=== PATIENT | male | born 1960 | race Caucasian/White ===

== ENCOUNTER 2017-07-28 13:54 | Inpatient (IN) ==
[2017-07-28 15:07] LABS: Basophils # 0.1 10*3/uL (0.0-0.2); Basophils % 0.7 % (0.0-0.8); Eosinophils # 0.1 10*3/uL (0.0-0.87); Eosinophils % 1.7 % (0.00-10.9); Hematocrit 40.7 VOL% (42.0-52.0); Hemoglobin 14.2 GM/DL (14.0-18.0); Immature Granulocytes % 0.4 %; Immature Granulocytes Absolute 0.03 #; Lymphocytes # 2.2 10*3/uL (1.4-4.0); Lymphocytes % 28.7 % (21.2-54.2); Mean Corpuscular HGB Conc 34.9 GM/DL (32-36); Mean Corpuscular Hemoglobin 32 PG (27-34); Mean Corpuscular Volume 91.3 FL (87-102); Mean Platelet Volume 10.4 FL (9.6-12.0); Monocytes # 0.5 10*3/uL (0.11-0.8); Monocytes % 6.3 % (1.7-12.7); Neutrophils # 4.8 10*3/uL (1.4-7.4); Neutrophils % 62.2 % (38.7-73.9); Platelet Count 222 T/CUMM (130-400); Red Blood Count 4.46 MC/CUMM (3.8-5.5); White Blood Count 7.7 T/CUMM (4-12)
[2017-07-28 15:13] LABS: INR 0.9; PT Patient Result 9.9 SECS; Partial Thromboplastin Time 26.4 SECS (0-40)
[2017-07-28 15:27] LABS: Alanine Aminotransferase 26 U/L (16-61); Albumin 3.7 G/DL (3.4-5.0); Alkaline Phosphatase 78 U/L (45-117); Aspartate Amino Transferase 17 U/L (0-37); Blood Urea Nitrogen 13 MG/DL (7-18); Calcium 8.8 MG/DL (8.5-10.1); Glucose 99 MG/DL (74-106); Magnesium 1.9 MG/DL (1.8-2.4); Osmolality,Calculated 278.4 MOS/KG (273-304); Potassium 4.3 MMOL/L (3.5-5.1); Sodium 140 MMOL/L (136-145); Total Protein 6.9 G/DL (6.4-8.3)
[2017-07-28 15:29] LABS: Troponin I Only 0.117 NG/ML (0.00-0.045)
[2017-07-28] MEDS ORDERED: NICOTINE 21 MG/24 HR PATCH TRANSDERM PRN (16:41)
[2017-07-28] MEDS ORDERED: ONDANSETRON 4 MG/2 ML VIAL IV PRN (16:41)
[2017-07-28] MEDS ORDERED: ACETAMINOPHEN 325 MG TABLET PO PRN (16:41)
[2017-07-28] MEDS ORDERED: ALUM/MAG/SIMETH/LIDO VISC 1:1 30 ML BOTTLE PO STA (16:46)
[2017-07-28] MEDS ORDERED: ALUM/MAG/SIMETH/LIDO VISC 1:1 30 ML BOTTLE PO ONE (16:54)
[2017-07-28] MEDS ORDERED: NITROGLYCERIN SL 0.4 MG TABLET SL PRN (17:12)
[2017-07-28] MEDS ORDERED: CARVEDILOL 3.125 MG TABLET PO SCH (21:00)
[2017-07-28] MEDS ORDERED: ATORVASTATIN 10 MG TABLET PO SCH (21:00)
[2017-07-28] MEDS: METOPROLOL TARTRATE 25 MG TABLET PO SCH (21:17)
[2017-07-28] MEDS: ENOXAPARIN 100 MG/ML SYRINGE SUBCUT SCH (21:18)
[2017-07-28 23:06] LABS: Apearance,Urine CLEAR (Clear); Bilirubin,Urine Negative (Negative); Blood, Urine Negative (Negative); Glucose,Urine (UA) Negative (Negative); Ketones,Urine Negative (Negative); Mucus,Urine Occasional /LPF (Occasional); Nitrite,Urine Negative (Negative); Protein,Urine Negative; RBC,Urine <1 /HPF (0-4); Urine Color Yellow (Yellow); Urine Specific Gravity 1.012 (1.001-1.035); WBC,Urine <1 /HPF (0-6)
[2017-07-29 03:24] LABS: Basophils # 0.1 10*3/uL (0.0-0.2); Basophils % 0.9 % (0.0-0.8); Eosinophils # 0.2 10*3/uL (0.0-0.87); Eosinophils % 2.7 % (0.00-10.9); Hematocrit 41.1 VOL% (42.0-52.0); Hemoglobin 13.3 GM/DL (14.0-18.0); Immature Granulocytes % 0.4 %; Immature Granulocytes Absolute 0.03 #; Lymphocytes # 2.6 10*3/uL (1.4-4.0); Lymphocytes % 38.7 % (21.2-54.2); Mean Corpuscular HGB Conc 32.4 GM/DL (32-36); Mean Corpuscular Hemoglobin 31 PG (27-34); Mean Corpuscular Volume 94.5 FL (87-102); Mean Platelet Volume 10.3 FL (9.6-12.0); Monocytes # 0.5 10*3/uL (0.11-0.8); Monocytes % 7.5 % (1.7-12.7); Neutrophils # 3.3 10*3/uL (1.4-7.4); Neutrophils % 49.8 % (38.7-73.9); Platelet Count 206 T/CUMM (130-400); Red Blood Count 4.35 MC/CUMM (3.8-5.5); Red Cell Distribution Width 14.2 % (9.3-17.3); White Blood Count 6.7 T/CUMM (4-12)
[2017-07-29 03:54] LABS: Calcium 8.7 MG/DL (8.5-10.1); Osmolality,Calculated 283.1 MOS/KG (273-304); Potassium 4.4 MMOL/L (3.5-5.1); Risk Ratio 4.67; VLDL CHOLESTEROL 26.4 MG/DL
[2017-07-29] MEDS ORDERED: MAGNESIUM SULF RIDER 2 GM in PREMIX 1 EACH IV PRN (08:19)
[2017-07-29] MEDS ORDERED: POTASSIUM CHLORIDE RIDER 10 MEQ in PREMIX 1 EACH IV PRN (08:19)
[2017-07-29] MEDS ORDERED: SODIUM CHLORIDE 0.45% 1,000 ML IV SCH (08:30)
[2017-07-29] MEDS ORDERED: ATORVASTATIN 40 MG TABLET PO SCH (08:37)
[2017-07-29] MEDS ORDERED: ASPIRIN 325 MG TABLET ONE (08:40)
[2017-07-29] MEDS ORDERED: ASPIRIN EC 81 MG TABLET PO SCH ×3 (09:00→14:38)
[2017-07-29] MEDS: METOPROLOL TARTRATE 25 MG TABLET PO SCH ×2 (09:18→20:46)
[2017-07-29] MEDS: ENOXAPARIN 100 MG/ML SYRINGE SUBCUT SCH ×3 (09:18→20:51)
[2017-07-29] MEDS: PANTOPRAZOLE 40 MG TABLET PO SCH (09:18)
[2017-07-29] MEDS ORDERED: POTASSIUM CHLORIDE INJ 20 MEQ in SODIUM CHLORIDE 0.45% 250 ML IV ONE (10:30)
[2017-07-29] MEDS: NITROGLYCERIN 2% OINT 1 INCH/GM PACK TOP SCH ×2 (12:09→17:22)
[2017-07-29] MEDS ORDERED: DIAZEPAM 5 MG TABLET PO ONE (13:00)
[2017-07-29] MEDS ORDERED: diphenhydrAMINE CAP 25 MG CAPSULE PO ONE (13:00)
[2017-07-29] MEDS ORDERED: HEPARIN/NACL 0.9% 2 UNITS/ML 2,000 ML IV ONE (13:10)
[2017-07-29] MEDS ORDERED: LIDOCAINE 2%/EPI 20 ML VIAL ONE (13:10)
[2017-07-29] MEDS ORDERED: MIDAZOLAM 2 MG/2 ML VIAL ONE (13:28)
[2017-07-29] MEDS ORDERED: fentaNYL 100 MCG/2 ML VIAL ONE (13:28)
[2017-07-29] MEDS ORDERED: ENOXAPARIN 30 MG/0.3 ML SYRINGE ONE (13:50)
[2017-07-29] MEDS ORDERED: TIROFIBAN 5,000 MCG/100 ML PREMIX IV SCH (13:51)
[2017-07-29] MEDS ORDERED: TIROFIBAN 5,000 MCG/100 ML PREMIX IV ONE (13:52)
[2017-07-29] MEDS ORDERED: TICAGRELOR 90 MG TABLET ONE (13:58)
[2017-07-29] MEDS ORDERED: NITROGLYCERIN SL 0.4 MG TABLET SL PRN (14:32)
[2017-07-29] MEDS ORDERED: HYDROmorphone 2 MG/1 ML VIAL IV PRN (14:32)
[2017-07-29] MEDS ORDERED: fentaNYL 100 MCG/2 ML VIAL IV PRN (14:32)
[2017-07-29] MEDS: ALBUTEROL/IPRATROPIUM 3 ML NEB RESP TX SCH ×3 (16:27→20:31)
[2017-07-30] MEDS: ALBUTEROL/IPRATROPIUM 3 ML NEB RESP TX SCH ×4 (00:24→11:04)
[2017-07-30] MEDS: NITROGLYCERIN 2% OINT 1 INCH/GM PACK TOP SCH ×2 (00:46→09:43)
[2017-07-30 06:11] LABS: Basophils # 0.1 10*3/uL (0.0-0.2); Basophils % 0.8 % (0.0-0.8); Eosinophils # 0.1 10*3/uL (0.0-0.87); Eosinophils % 1.5 % (0.00-10.9); Hematocrit 42.2 VOL% (42.0-52.0); Immature Granulocytes % 0.4 %; Immature Granulocytes Absolute 0.03 #; Lymphocytes % 23.9 % (21.2-54.2); Mean Corpuscular HGB Conc 33.2 GM/DL (32-36); Mean Corpuscular Hemoglobin 31 PG (27-34); Mean Corpuscular Volume 93.4 FL (87-102); Mean Platelet Volume 9.9 FL (9.6-12.0); Monocytes # 0.5 10*3/uL (0.11-0.8); Monocytes % 5.7 % (1.7-12.7); Neutrophils # 5.7 10*3/uL (1.4-7.4); Neutrophils % 67.7 % (38.7-73.9); Platelet Count 206 T/CUMM (130-400); Red Blood Count 4.52 MC/CUMM (3.8-5.5); Red Cell Distribution Width 14.1 % (9.3-17.3); White Blood Count 8.4 T/CUMM (4-12)
[2017-07-30 06:42] LABS: Magnesium 2.4 MG/DL (1.8-2.4); Osmolality,Calculated 283.3 MOS/KG (273-304); Potassium 4.2 MMOL/L (3.5-5.1)
[2017-07-30 06:43] LABS: Risk Ratio 4.95; VLDL CHOLESTEROL 29.8 MG/DL
[2017-07-30 06:47] LABS: Calcium 8.7 MG/DL (8.5-10.1); Osmolality,Calculated 281.4 MOS/KG (273-304); Potassium 4.2 MMOL/L (3.5-5.1)
[2017-07-30 06:57] LABS: Troponin I Only 0.103 NG/ML (0.00-0.045)
[2017-07-30 08:51] VITALS: BP 124/75
[2017-07-30] MEDS ORDERED: TICAGRELOR 90 MG TABLET PO SCH (09:00)
[2017-07-30] MEDS ORDERED: LOSARTAN 25 MG TABLET PO SCH (09:00)
[2017-07-30] MEDS ORDERED: LISINOPRIL 2.5 MG TABLET PO SCH (09:00)
[2017-07-30] MEDS: METOPROLOL TARTRATE 25 MG TABLET PO SCH (09:43)
[2017-07-30] MEDS: PANTOPRAZOLE 40 MG TABLET PO SCH (09:43)
== END 2017-07-30 12:01 | disposition home or self-care (01) | DRG 175 ==
LOC: N.ED 13:54 → N.EDINP 13:54 → N.TELEN 18:13
PROVIDERS: ADMIT Internal Medicine Infectious Disease; ATTEND Internal Medicine Infectious Disease
PROC: CLCCHCL (ICD-10-PCS; 2017-07-29 14:15)

== ENCOUNTER 2020-02-26 13:18 | Inpatient (IN) ==
[2020-02-26] MEDS ORDERED: ASPIRIN 325 MG TABLET PO STA ×2 (13:46→14:06)
[2020-02-26] MEDS ORDERED: ONDANSETRON 4 MG/2 ML VIAL ONE (13:50)
[2020-02-26] MEDS ORDERED: MORPHINE 4 MG/1 ML VIAL ONE (14:03)
[2020-02-26] MEDS ORDERED: NITROGLYCERIN 2% OINT 1 INCH/GM PACK TOP STA (14:06)
[2020-02-26] MEDS ORDERED: MORPHINE 4 MG/1 ML VIAL IV STA (14:06)
[2020-02-26] MEDS ORDERED: ONDANSETRON 4 MG/2 ML VIAL IV STA (14:14)
[2020-02-26 14:15] LABS: Basophils # 0.1 10*3/uL (0.0-0.2); Basophils % 0.8 % (0.0-0.8); Eosinophils % 0.1 % (0.00-10.9); Hematocrit 41.2 VOL% (42.0-52.0); Hemoglobin 13.4 GM/DL (14.0-18.0); Immature Granulocytes % 0.3 %; Immature Granulocytes Absolute 0.02 #; Lymphocytes # 1.8 10*3/uL (1.4-4.0); Lymphocytes % 24.2 % (21.2-54.2); Mean Corpuscular HGB Conc 32.5 GM/DL (32-36); Mean Corpuscular Volume 93.6 FL (87-102); Mean Platelet Volume 10.3 FL (9.6-12.0); Monocytes % 5.3 % (1.7-12.7); Neutrophils % 69.3 % (38.7-73.9); Platelet Count 163 T/CUMM (130-400); Red Cell Distribution Width 13.4 % (9.3-17.3); White Blood Count 7.3 T/CUMM (4-12)
[2020-02-26 14:23] LABS: PT Patient Result 10.3 SECS (9.8-11.9)
[2020-02-26 14:29] LABS: Albumin 3.7 G/DL (3.4-5.0); Bilirubin,Total 0.4 MG/DL (0.2-1.0); Calcium 9.1 MG/DL (8.5-10.1); Osmolality,Calculated 279.8 MOS/KG (273-304); Total Protein 6.7 G/DL (6.4-8.3)
[2020-02-26] MEDS ORDERED: LACTULOSE 20 GM/30 ML UDCUP PO PRN (14:52)
[2020-02-26] MEDS ORDERED: guaiFENesin/DM ER 600-30 MG TABLET PO PRN (14:52)
[2020-02-26] MEDS ORDERED: DOCUSATE SODIUM 100 MG CAPSULE PO PRN (14:52)
[2020-02-26] MEDS ORDERED: BISACODYL 5 MG TABLET PO PRN (14:52)
[2020-02-26] MEDS ORDERED: hydrALAZINE 20 MG/1 ML VIAL IV PRN (14:52)
[2020-02-26] MEDS ORDERED: ZALEPLON 5 MG CAPSULE PO PRN (14:52)
[2020-02-26] MEDS ORDERED: traZODone 50 MG TABLET PO PRN (14:52)
[2020-02-26] MEDS ORDERED: CALCIUM CARBONATE CHEW 500 MG TABLET PO PRN (14:52)
[2020-02-26] MEDS ORDERED: NICOTINE 21 MG/24 HR PATCH TRANSDERM PRN (14:52)
[2020-02-26] MEDS ORDERED: DEXTROSE 50% 25 GM/50 ML VIAL IV PRN ×2 (14:52→16:22)
[2020-02-26] MEDS ORDERED: ALUMINUM/MAGNES/SIMETH MAX STR 30 ML UDCUP PO PRN (14:52)
[2020-02-26] MEDS ORDERED: SIMETHICONE CHEW 125 MG TABLET PO PRN (14:52)
[2020-02-26] MEDS ORDERED: diphenhydrAMINE CAP 25 MG CAPSULE PO PRN (14:52)
[2020-02-26] MEDS ORDERED: ALBUTEROL 2.5 MG/3 ML NEB RESP TX PRN (16:21)
[2020-02-26] MEDS ORDERED: ONDANSETRON 4 MG TABLET PO PRN (16:21)
[2020-02-26] MEDS ORDERED: NITROGLYCERIN SL 0.4 MG TABLET SL PRN (16:21)
[2020-02-26] MEDS ORDERED: ALBUTEROL/IPRATROPIUM 3 ML NEB RESP TX PRN (16:21)
[2020-02-26] MEDS ORDERED: GLUCAGON 1 MG VIAL IM PRN (16:22)
[2020-02-26] MEDS: MORPHINE 4 MG/1 ML VIAL IV PRN ×2 (17:00→21:40)
[2020-02-26] MEDS ORDERED: METOPROLOL TARTRATE 5 MG/5 ML VIAL IV ONE (17:20)
[2020-02-26] MEDS: INSULIN REGULAR 100 UNIT/ML SUBCUT SCH ×2 (18:37→21:55)
[2020-02-26] MEDS: SODIUM CHLORIDE 23.4% CONC INJ 38.5 MEQ in STERILE WATER INJ 1,000 ML IV SCH (21:10)
[2020-02-26] MEDS: METOPROLOL TARTRATE 25 MG TABLET PO SCH (21:45)
[2020-02-26] MEDS: ATORVASTATIN 80 MG TABLET PO SCH (21:45)
[2020-02-26] MEDS: buPROPion SR 150 MG TABLET PO SCH (21:45)
[2020-02-26] MEDS: FAMOTIDINE 20 MG TABLET PO SCH (21:45)
[2020-02-26] MEDS: GABAPENTIN 400 MG CAPSULE PO SCH (21:45)
[2020-02-26] MEDS: risperiDONE 1 MG TABLET PO SCH (21:46)
[2020-02-26] MEDS: NON-FORMULARY MEDICATION (Glycopyrrolate-Formoterol [Bevespi Aerosphere] 2 PUFF) INH SCH (21:47)
[2020-02-26] MEDS: ENOXAPARIN 40 MG/0.4 ML SYRINGE SUBCUT SCH (21:48)
[2020-02-27 06:35] LABS: Basophils % 0.7 % (0.0-0.8); Eosinophils # 0.2 10*3/uL (0.0-0.87); Eosinophils % 2.9 % (0.00-10.9); Hematocrit 41.7 VOL% (42.0-52.0); Hemoglobin 13.6 GM/DL (14.0-18.0); Immature Granulocytes % 0.2 %; Immature Granulocytes Absolute 0.01 #; Lymphocytes # 1.7 10*3/uL (1.4-4.0); Lymphocytes % 27.8 % (21.2-54.2); Mean Corpuscular HGB Conc 32.6 GM/DL (32-36); Mean Corpuscular Volume 93.3 FL (87-102); Mean Platelet Volume 10.6 FL (9.6-12.0); Monocytes % 3.8 % (1.7-12.7); Neutrophils % 64.6 % (38.7-73.9); Platelet Count 144 T/CUMM (130-400); Red Blood Count 4.47 MC/CUMM (3.8-5.5); Red Cell Distribution Width 13.4 % (9.3-17.3); White Blood Count 6.1 T/CUMM (4-12)
[2020-02-27 07:11] LABS: Albumin 3.5 G/DL (3.4-5.0); Bilirubin,Total 1.3 MG/DL (0.2-1.0); Calcium 9.4 MG/DL (8.5-10.1); Thyroid Stimulating Hormone 0.443 uIU/ml (0.358-3.74); Total Protein 6.9 G/DL (6.4-8.3); VLDL CHOLESTEROL 45.2 MG/DL
[2020-02-27] MEDS: INSULIN REGULAR 100 UNIT/ML SUBCUT SCH ×4 (08:23→21:50)
[2020-02-27 10:14] LABS: Apearance,Urine CLEAR (Clear); Bilirubin,Urine Negative (Negative); Blood, Urine Negative (Negative); Glucose,Urine (UA) >=500 mg/dL (Negative); Ketones,Urine 20 mg/dL (Negative); Mucus,Urine Occasional /LPF (Occasional); Nitrite,Urine Negative (Negative); Protein,Urine Negative; RBC,Urine 1 /HPF (0-4); Urine Color Yellow (Yellow); Urine Specific Gravity 1.021 (1.001-1.035); Urine Urobilinogen < 2.0 EU/DL (0.2-1.0)
[2020-02-27 10:20] LABS: Barbiturates Screen,Urine Negative (Negative); Benzodiazepines Screen,Urine Positive (Negative); Cannabinoid Screen,Urine Negative (Negative); Opiate Screen,Urine Positive (Negative); Phencyclidine Screen,Urine Negative (Negative)
[2020-02-27] MEDS: GABAPENTIN 400 MG CAPSULE PO SCH ×3 (11:47→21:35)
[2020-02-27] MEDS: ASPIRIN EC 81 MG TABLET PO SCH (11:53)
[2020-02-27] MEDS: DULoxetine 30 MG CAPSULE PO SCH (11:54)
[2020-02-27] MEDS: EZETIMIBE 10 MG TABLET PO SCH (11:54)
[2020-02-27] MEDS: CLOPIDOGREL 75 MG TABLET PO SCH (11:54)
[2020-02-27] MEDS: METOPROLOL TARTRATE 25 MG TABLET PO SCH ×2 (11:54→21:35)
[2020-02-27] MEDS: buPROPion SR 150 MG TABLET PO SCH ×2 (11:54→21:36)
[2020-02-27] MEDS: FUROSEMIDE 20 MG TABLET PO SCH (11:54)
[2020-02-27] MEDS: PANTOPRAZOLE 40 MG TABLET PO SCH (11:54)
[2020-02-27] MEDS: risperiDONE 1 MG TABLET PO SCH ×2 (11:54→21:36)
[2020-02-27] MEDS: NON-FORMULARY MEDICATION (Glycopyrrolate-Formoterol [Bevespi Aerosphere] 2 PUFF) INH SCH ×2 (11:54→21:35)
[2020-02-27] MEDS: LOSARTAN 25 MG TABLET PO SCH (11:54)
[2020-02-27] MEDS: SODIUM CHLORIDE 23.4% CONC INJ 38.5 MEQ in STERILE WATER INJ 1,000 ML IV SCH (18:18)
[2020-02-27] MEDS: ATORVASTATIN 80 MG TABLET PO SCH (21:35)
[2020-02-27] MEDS: ENOXAPARIN 40 MG/0.4 ML SYRINGE SUBCUT SCH (21:36)
[2020-02-27] MEDS: FAMOTIDINE 20 MG TABLET PO SCH (21:36)
[2020-02-28 06:39] LABS: Basophils % 0.4 % (0.0-0.8); Eosinophils % 0.3 % (0.00-10.9); Hematocrit 42.9 VOL% (42.0-52.0); Hemoglobin 14.1 GM/DL (14.0-18.0); Immature Granulocytes % 0.3 %; Immature Granulocytes Absolute 0.02 #; Lymphocytes # 2.1 10*3/uL (1.4-4.0); Lymphocytes % 31.2 % (21.2-54.2); Mean Corpuscular HGB Conc 32.9 GM/DL (32-36); Mean Corpuscular Volume 92.9 FL (87-102); Mean Platelet Volume 10.5 FL (9.6-12.0); Monocytes % 2.8 % (1.7-12.7); Platelet Count 152 T/CUMM (130-400); Red Blood Count 4.62 MC/CUMM (3.8-5.5); Red Cell Distribution Width 13.1 % (9.3-17.3); White Blood Count 6.7 T/CUMM (4-12)
[2020-02-28 07:17] LABS: Albumin 3.4 G/DL (3.4-5.0); Bilirubin,Total 0.7 MG/DL (0.2-1.0); Calcium 9.1 MG/DL (8.5-10.1); Osmolality,Calculated 272.2 MOS/KG (273-304); Total Protein 7.1 G/DL (6.4-8.3)
[2020-02-28] MEDS: CLOPIDOGREL 75 MG TABLET PO SCH (09:23)
[2020-02-28] MEDS: FUROSEMIDE 20 MG TABLET PO SCH (09:23)
[2020-02-28] MEDS: EZETIMIBE 10 MG TABLET PO SCH (09:23)
[2020-02-28] MEDS: GABAPENTIN 400 MG CAPSULE PO SCH ×3 (09:23→20:27)
[2020-02-28] MEDS: ASPIRIN EC 81 MG TABLET PO SCH (09:23)
[2020-02-28] MEDS: buPROPion SR 150 MG TABLET PO SCH ×2 (09:24→20:26)
[2020-02-28] MEDS: PANTOPRAZOLE 40 MG TABLET PO SCH (09:24)
[2020-02-28] MEDS: NON-FORMULARY MEDICATION (Glycopyrrolate-Formoterol [Bevespi Aerosphere] 2 PUFF) INH SCH ×2 (09:24→21:05)
[2020-02-28] MEDS: METOPROLOL TARTRATE 25 MG TABLET PO SCH ×2 (09:24→20:27)
[2020-02-28] MEDS: risperiDONE 1 MG TABLET PO SCH ×2 (09:24→20:26)
[2020-02-28] MEDS: DULoxetine 30 MG CAPSULE PO SCH (09:24)
[2020-02-28] MEDS: INSULIN REGULAR 100 UNIT/ML SUBCUT SCH ×4 (09:24→20:27)
[2020-02-28] MEDS: LOSARTAN 25 MG TABLET PO SCH (09:24)
[2020-02-28] MEDS: ALBUTEROL/IPRATROPIUM 3 ML NEB RESP TX SCH ×4 (09:45→23:43)
[2020-02-28] MEDS ORDERED: ALBUTEROL 2.5 MG/3 ML NEB RESP TX PRN (13:00)
[2020-02-28] MEDS: SODIUM CHLORIDE 23.4% CONC INJ 38.5 MEQ in STERILE WATER INJ 1,000 ML IV SCH (14:26)
[2020-02-28] MEDS: ATORVASTATIN 80 MG TABLET PO SCH (20:26)
[2020-02-28] MEDS: ENOXAPARIN 40 MG/0.4 ML SYRINGE SUBCUT SCH (20:26)
[2020-02-28] MEDS: FAMOTIDINE 20 MG TABLET PO SCH (20:27)
[2020-02-29] MEDS: ALBUTEROL/IPRATROPIUM 3 ML NEB RESP TX SCH ×7 (03:15→23:10)
[2020-02-29 05:22] LABS: Basophils % 0.4 % (0.0-0.8); Eosinophils # 0.1 10*3/uL (0.0-0.87); Hematocrit 40.6 VOL% (42.0-52.0); Hemoglobin 13.2 GM/DL (14.0-18.0); Immature Granulocytes % 0.3 %; Immature Granulocytes Absolute 0.02 #; Lymphocytes # 1.9 10*3/uL (1.4-4.0); Lymphocytes % 27.3 % (21.2-54.2); Mean Corpuscular HGB Conc 32.5 GM/DL (32-36); Mean Corpuscular Volume 94.4 FL (87-102); Mean Platelet Volume 10.4 FL (9.6-12.0); Monocytes % 3.5 % (1.7-12.7); Neutrophils % 66.5 % (38.7-73.9); Platelet Count 147 T/CUMM (130-400); Red Cell Distribution Width 13.1 % (9.3-17.3)
[2020-02-29 05:38] LABS: Albumin 3.3 G/DL (3.4-5.0); Bilirubin,Total 0.6 MG/DL (0.2-1.0); Calcium 8.8 MG/DL (8.5-10.1); Total Protein 6.9 G/DL (6.4-8.3)
[2020-02-29 05:47] LABS: Hypochromasia 1+; Platelet Estimate Normal
[2020-02-29] MEDS: SODIUM CHLORIDE 23.4% CONC INJ 38.5 MEQ in STERILE WATER INJ 1,000 ML IV SCH (06:51)
[2020-02-29] MEDS ORDERED: MAGNESIUM SULF RIDER 2 GM in PREMIX 1 EACH IV PRN (07:35)
[2020-02-29] MEDS ORDERED: POTASSIUM CHLORIDE RIDER 10 MEQ in PREMIX 1 EACH IV PRN (07:35)
[2020-02-29] MEDS ORDERED: diphenhydrAMINE CAP 25 MG CAPSULE PO PRN (07:40)
[2020-02-29] MEDS: risperiDONE 1 MG TABLET PO SCH ×2 (08:40→21:07)
[2020-02-29] MEDS: buPROPion SR 150 MG TABLET PO SCH ×2 (08:40→21:07)
[2020-02-29] MEDS: INSULIN REGULAR 100 UNIT/ML SUBCUT SCH ×4 (08:40→21:08)
[2020-02-29] MEDS: DULoxetine 30 MG CAPSULE PO SCH (08:41)
[2020-02-29] MEDS: PANTOPRAZOLE 40 MG TABLET PO SCH (08:41)
[2020-02-29] MEDS: EZETIMIBE 10 MG TABLET PO SCH (08:41)
[2020-02-29] MEDS: GABAPENTIN 400 MG CAPSULE PO SCH ×3 (08:41→21:07)
[2020-02-29] MEDS: ASPIRIN EC 81 MG TABLET PO SCH (08:42)
[2020-02-29] MEDS: CLOPIDOGREL 75 MG TABLET PO SCH (08:42)
[2020-02-29] MEDS: ENOXAPARIN 120 MG/0.8 ML SYRINGE SUBCUT SCH ×2 (08:44→21:08)
[2020-02-29] MEDS: FUROSEMIDE 20 MG TABLET PO SCH (08:44)
[2020-02-29] MEDS: LOSARTAN 25 MG TABLET PO SCH ×2 (08:44→12:24)
[2020-02-29] MEDS: NON-FORMULARY MEDICATION (Glycopyrrolate-Formoterol [Bevespi Aerosphere] 2 PUFF) INH SCH ×2 (08:45→21:09)
[2020-02-29] MEDS: METOPROLOL TARTRATE 25 MG TABLET PO SCH ×2 (08:45→12:24)
[2020-02-29] MEDS ORDERED: METOPROLOL TARTRATE 25 MG TABLET PO ONE (13:29)
[2020-02-29] MEDS: METOPROLOL TARTRATE 50 MG TABLET PO SCH (21:07)
[2020-02-29] MEDS: ATORVASTATIN 80 MG TABLET PO SCH (21:07)
[2020-02-29] MEDS: FAMOTIDINE 20 MG TABLET PO SCH (21:08)
[2020-03-01] MEDS: ALBUTEROL/IPRATROPIUM 3 ML NEB RESP TX SCH ×5 (03:00→21:42)
[2020-03-01 05:25] LABS: Basophils % 0.3 % (0.0-0.8); Eosinophils # 0.2 10*3/uL (0.0-0.87); Eosinophils % 2.7 % (0.00-10.9); Hematocrit 38.4 VOL% (42.0-52.0); Hemoglobin 12.4 GM/DL (14.0-18.0); Immature Granulocytes % 0.3 %; Immature Granulocytes Absolute 0.02 #; Lymphocytes # 2.3 10*3/uL (1.4-4.0); Lymphocytes % 39.3 % (21.2-54.2); Mean Corpuscular HGB Conc 32.3 GM/DL (32-36); Mean Corpuscular Volume 93.9 FL (87-102); Mean Platelet Volume 10.3 FL (9.6-12.0); Monocytes % 3.1 % (1.7-12.7); Neutrophils % 54.3 % (38.7-73.9); Platelet Count 147 T/CUMM (130-400); Red Blood Count 4.09 MC/CUMM (3.8-5.5); White Blood Count 5.8 T/CUMM (4-12)
[2020-03-01 06:03] LABS: Albumin 3.3 G/DL (3.4-5.0); Bilirubin,Total 0.7 MG/DL (0.2-1.0); Calcium 8.9 MG/DL (8.5-10.1); Total Protein 6.9 G/DL (6.4-8.3)
[2020-03-01] MEDS ORDERED: SODIUM CHLORIDE 0.45% 1,000 ML IV SCH (07:00)
[2020-03-01] MEDS ORDERED: diphenhydrAMINE CAP 25 MG CAPSULE PO ONE (07:35)
[2020-03-01] MEDS ORDERED: DIAZEPAM 5 MG TABLET PO ONE (07:35)
[2020-03-01] MEDS: INSULIN REGULAR 100 UNIT/ML SUBCUT SCH ×4 (07:41→21:00)
[2020-03-01] MEDS: ENOXAPARIN 120 MG/0.8 ML SYRINGE SUBCUT SCH ×2 (08:00→20:51)
[2020-03-01] MEDS: LOSARTAN 25 MG TABLET PO SCH (08:01)
[2020-03-01] MEDS: CLOPIDOGREL 75 MG TABLET PO SCH (08:01)
[2020-03-01] MEDS: ASPIRIN EC 81 MG TABLET PO SCH (08:01)
[2020-03-01] MEDS: METOPROLOL TARTRATE 50 MG TABLET PO SCH ×2 (08:04→20:53)
[2020-03-01] MEDS ORDERED: LIDOCAINE 1%/EPI INJ 20 ML VIAL ONE (08:09)
[2020-03-01] MEDS ORDERED: HEPARIN/NACL 0.9% 2 UNITS/ML 1,000 ML IV ONE (08:09)
[2020-03-01] MEDS: DULoxetine 30 MG CAPSULE PO SCH (08:23)
[2020-03-01] MEDS: EZETIMIBE 10 MG TABLET PO SCH (08:24)
[2020-03-01] MEDS: buPROPion SR 150 MG TABLET PO SCH ×2 (08:24→20:54)
[2020-03-01] MEDS: GABAPENTIN 400 MG CAPSULE PO SCH ×3 (08:24→20:53)
[2020-03-01] MEDS: risperiDONE 1 MG TABLET PO SCH ×2 (08:24→20:53)
[2020-03-01] MEDS: NON-FORMULARY MEDICATION (Glycopyrrolate-Formoterol [Bevespi Aerosphere] 2 PUFF) INH SCH ×2 (08:24→21:00)
[2020-03-01] MEDS: PANTOPRAZOLE 40 MG TABLET PO SCH (08:24)
[2020-03-01] MEDS: FUROSEMIDE 20 MG TABLET PO SCH (08:24)
[2020-03-01] MEDS ORDERED: MIDAZOLAM 2 MG/2 ML VIAL ONE (08:27)
[2020-03-01] MEDS ORDERED: fentaNYL 100 MCG/2 ML VIAL ONE (08:27)
[2020-03-01] MEDS: FAMOTIDINE 20 MG TABLET PO SCH (20:52)
[2020-03-01] MEDS: ATORVASTATIN 80 MG TABLET PO SCH (20:54)
[2020-03-02] MEDS: ALBUTEROL/IPRATROPIUM 3 ML NEB RESP TX SCH ×3 (03:55→07:46)
[2020-03-02 06:20] LABS: Basophils % 0.3 % (0.0-0.8); Eosinophils # 0.3 10*3/uL (0.0-0.87); Eosinophils % 4.7 % (0.00-10.9); Hematocrit 37.6 VOL% (42.0-52.0); Hemoglobin 12.4 GM/DL (14.0-18.0); Immature Granulocytes % 0.3 %; Immature Granulocytes Absolute 0.02 #; Lymphocytes # 2.1 10*3/uL (1.4-4.0); Lymphocytes % 32.9 % (21.2-54.2); Mean Corpuscular Volume 92.8 FL (87-102); Mean Platelet Volume 10.1 FL (9.6-12.0); Monocytes % 5.3 % (1.7-12.7); Neutrophils % 56.5 % (38.7-73.9); Platelet Count 137 T/CUMM (130-400); Red Blood Count 4.05 MC/CUMM (3.8-5.5); Red Cell Distribution Width 13.2 % (9.3-17.3); White Blood Count 6.5 T/CUMM (4-12)
[2020-03-02 06:49] LABS: Hypochromasia 1+; Ovalocytes Slight; Platelet Estimate Normal
[2020-03-02 06:50] LABS: Microcytosis 1+
[2020-03-02 07:02] LABS: Calcium 9.2 MG/DL (8.5-10.1)
[2020-03-02 07:03] LABS: Albumin 3.2 G/DL (3.4-5.0)
[2020-03-02 07:08] LABS: Bilirubin,Total 0.5 MG/DL (0.2-1.0); Total Protein 6.9 G/DL (6.4-8.3)
[2020-03-02] MEDS: INSULIN REGULAR 100 UNIT/ML SUBCUT SCH (08:07)
[2020-03-02 08:55] VITALS: BP 139/74
[2020-03-02] MEDS: METOPROLOL TARTRATE 50 MG TABLET PO SCH (09:12)
[2020-03-02] MEDS: DULoxetine 30 MG CAPSULE PO SCH (09:12)
[2020-03-02] MEDS: GABAPENTIN 400 MG CAPSULE PO SCH (09:12)
[2020-03-02] MEDS: ASPIRIN EC 81 MG TABLET PO SCH (09:12)
[2020-03-02] MEDS: LOSARTAN 25 MG TABLET PO SCH (09:13)
[2020-03-02] MEDS: ENOXAPARIN 120 MG/0.8 ML SYRINGE SUBCUT SCH (09:13)
[2020-03-02] MEDS: FUROSEMIDE 20 MG TABLET PO SCH (09:13)
[2020-03-02] MEDS: risperiDONE 1 MG TABLET PO SCH (09:13)
[2020-03-02] MEDS: EZETIMIBE 10 MG TABLET PO SCH (09:13)
[2020-03-02] MEDS: CLOPIDOGREL 75 MG TABLET PO SCH (09:13)
[2020-03-02] MEDS: NON-FORMULARY MEDICATION (Glycopyrrolate-Formoterol [Bevespi Aerosphere] 2 PUFF) INH SCH (09:14)
[2020-03-02] MEDS: buPROPion SR 150 MG TABLET PO SCH (09:14)
[2020-03-02] MEDS: PANTOPRAZOLE 40 MG TABLET PO SCH (09:14)
[2020-03-02] MEDS ORDERED: HEPARIN LOCK FLUSH 500 UNIT/5 ML SYRINGE IV ONE (10:07)
== END 2020-03-02 10:38 | disposition home or self-care (01) | DRG 190 ==
LOC: EDUNIT# → EDBD → N.EDINP 13:18 → N.ED 13:18 → SUATTDRO 16:07 → N.TELES 16:50
PROVIDERS: ADMIT Hospitalist; ATTEND Family Medicine
PROC: CLCCHCL (ICD-10-PCS; 2020-03-01 10:45)

== ENCOUNTER 2020-12-25 15:48 | Inpatient (IN) ==
[2020-12-25] MEDS ORDERED: ALBUTEROL/IPRATROPIUM 3 ML NEB RESP TX STA (17:15)
[2020-12-25] MEDS ORDERED: SODIUM CHLORIDE 0.9% 1,000 ML IV STA (17:15)
[2020-12-25 17:49] LABS: Basophils % 0.5 % (0.0-0.8); Eosinophils % 1.9 % (0.00-10.9); Hematocrit 21.2 VOL% (42.0-52.0); Hemoglobin 7.1 GM/DL (14.0-18.0); Immature Granulocytes % 0.9 %; Immature Granulocytes Absolute 0.02 #; Lymphocytes # 0.3 10*3/uL (1.4-4.0); Lymphocytes % 13.3 % (21.2-54.2); Mean Corpuscular HGB Conc 33.5 GM/DL (32-36); Mean Corpuscular Volume 98.1 FL (87-102); Monocytes % 5.2 % (1.7-12.7); Neutrophils % 78.2 % (38.7-73.9); Platelet Count 65 T/CUMM (130-400); Red Blood Count 2.16 MC/CUMM (3.8-5.5); Red Cell Distribution Width 18.3 % (9.3-17.3); White Blood Count 2.1 T/CUMM (4-12)
[2020-12-25] MEDS ORDERED: ONDANSETRON 4 MG/2 ML VIAL ONE (17:50)
[2020-12-25] MEDS ORDERED: ONDANSETRON 4 MG/2 ML VIAL IV STA (17:54)
[2020-12-25 17:59] LABS: INR 0.9; PT Patient Result 10.6 SECS (10.5-12.0)
[2020-12-25 18:01] LABS: Partial Thromboplastin Time 69.4 SECS (23.9-33.8)
[2020-12-25 18:12] LABS: Alanine Aminotransferase 22 U/L (16-61); Albumin 3.2 G/DL (3.4-5.0); Alkaline Phosphatase 102 U/L (45-117); Amylase 23 U/L (25-115); Aspartate Amino Transferase 34 U/L (0-37); Bilirubin,Total < 0.39 MG/DL (0.2-1.0); Blood Urea Nitrogen 13 MG/DL (7-18); Calcium 8.8 MG/DL (8.5-10.1); Carbon Dioxide 29 MMOL/L (21-32); Estimated Glom Filtration Rate 140 ML/MIN; Glucose 100 MG/DL (74-106); Osmolality,Calculated 256.1 MOS/KG (273-304); Potassium 3.6 MMOL/L (3.5-5.1); Sodium 128 MMOL/L (136-145)
[2020-12-25 18:19] LABS: Band Neutrophils 3 % (0-10); Eosinophils 1 % (0-10); Lymphocytes 13 % (20-55); Metamyelocytes 1 %; Segmented Neutrophils 81 % (50-85); Total Cells Counted 100
[2020-12-25 18:20] LABS: Anisocytosis 2+; Macrocytosis 1+
[2020-12-25 18:21] LABS: Platelet Estimate Decreased
[2020-12-25] MEDS ORDERED: DEXTROSE 50% 25 GM/50 ML VIAL IV PRN (19:35)
[2020-12-25] MEDS ORDERED: GLUCAGON 1 MG VIAL IM PRN (19:35)
[2020-12-25] MEDS ORDERED: ONDANSETRON 4 MG/2 ML VIAL IV PRN (19:41)
[2020-12-25] MEDS ORDERED: SODIUM CHLORIDE 0.9% 1,000 ML IV PRN (19:41)
[2020-12-25 20:11] LABS: Risk Ratio 2.93; Thyroid Stimulating Hormone 0.952 uIU/ml (0.358-3.74)
[2020-12-25 20:44] LABS: Bilirubin,Urine Negative (Negative); Blood, Urine Negative (Negative); Glucose,Urine (UA) 50 mg/dL (Negative); Ketones,Urine Negative (Negative); Nitrite,Urine Negative (Negative); Protein,Urine Negative; RBC,Urine 1 /HPF (0-4); Urine Appearance CLEAR (Clear); Urine Color Yellow (Yellow); Urine Specific Gravity 1.018 (1.001-1.035); Urine Urobilinogen < 2.0 EU/DL (0.2-1.0)
[2020-12-25] MEDS: ATORVASTATIN 40 MG TABLET PO SCH (21:08)
[2020-12-25] MEDS: MELATONIN 3 MG TABLET PO PRN (21:08)
[2020-12-25] MEDS: METOPROLOL TARTRATE 25 MG TABLET PO SCH ×2 (21:08→21:14)
[2020-12-25] MEDS: PANTOPRAZOLE 40 MG VIAL IV SCH (21:09)
[2020-12-25] MEDS: methylPREDNISolone SOD SUC 40 MG/1 ML VIAL IV SCH (21:13)
[2020-12-25] MEDS: INSULIN LISPRO 100 UNIT/ML SUBCUT SCH (21:52)
[2020-12-26] MEDS ORDERED: SODIUM CHLORIDE 0.9% 1,000 ML IV PRN ×2 (00:02→09:40)
[2020-12-26] MEDS: ALBUTEROL/IPRATROPIUM 3 ML NEB RESP TX SCH ×4 (00:43→20:19)
[2020-12-26] MEDS: SODIUM CHLORIDE 0.9% 1,000 ML IV SCH ×2 (04:12→14:36)
[2020-12-26 04:48] LABS: Hematocrit 22.6 VOL% (42.0-52.0); Hemoglobin 7.3 GM/DL (14.0-18.0); Immature Granulocytes % 1.1 %; Immature Granulocytes Absolute 0.02 #; Lymphocytes # 0.2 10*3/uL (1.4-4.0); Lymphocytes % 9.5 % (21.2-54.2); Mean Corpuscular HGB Conc 32.3 GM/DL (32-36); Mean Corpuscular Volume 101.8 FL (87-102); Mean Platelet Volume 10.2 FL (9.6-12.0); Monocytes % 2.8 % (1.7-12.7); Neutrophils % 86.6 % (38.7-73.9); Platelet Count 65 T/CUMM (130-400); Red Blood Count 2.22 MC/CUMM (3.8-5.5); Red Cell Distribution Width 18.3 % (9.3-17.3); White Blood Count 1.8 T/CUMM (4-12)
[2020-12-26 05:08] LABS: Eosinophils 1 % (0-10); Hypochromasia 1+; Lymphocytes 7 % (20-55); Microcytosis 1+; Platelet Estimate Decreased; Segmented Neutrophils 90 % (50-85); Total Cells Counted 100
[2020-12-26 05:16] LABS: Calcium 9.3 MG/DL (8.5-10.1); Osmolality,Calculated 266.5 MOS/KG (273-304); Potassium 4.3 MMOL/L (3.5-5.1)
[2020-12-26] MEDS ORDERED: PANTOPRAZOLE 40 MG TABLET PO SCH (09:00)
[2020-12-26] MEDS: METOPROLOL TARTRATE 25 MG TABLET PO SCH ×2 (09:12→20:27)
[2020-12-26] MEDS: INSULIN LISPRO 100 UNIT/ML SUBCUT SCH ×4 (09:12→20:29)
[2020-12-26] MEDS: PANTOPRAZOLE 40 MG VIAL IV SCH ×2 (09:14→20:28)
[2020-12-26] MEDS: methylPREDNISolone SOD SUC 40 MG/1 ML VIAL IV SCH ×2 (09:14→20:28)
[2020-12-26] MEDS: FILGRASTIM-SNDZ 300 MCG/0.5 ML SYRINGE SUBCUT SCH (09:14)
[2020-12-26] MEDS ORDERED: NICOTINE 21 MG/24 HR PATCH TRANSDERM PRN (13:23)
[2020-12-26] MEDS: ATORVASTATIN 40 MG TABLET PO SCH (20:27)
[2020-12-26] MEDS: MELATONIN 3 MG TABLET PO PRN (20:27)
[2020-12-27] MEDS: ALBUTEROL/IPRATROPIUM 3 ML NEB RESP TX SCH ×2 (00:23→07:43)
[2020-12-27 06:14] LABS: Basophils % 0.4 % (0.0-0.8); Hematocrit 29.2 VOL% (42.0-52.0); Hemoglobin 9.9 GM/DL (14.0-18.0); Immature Granulocytes % 4.6 %; Immature Granulocytes Absolute 0.34 #; Lymphocytes # 0.4 10*3/uL (1.4-4.0); Lymphocytes % 5.4 % (21.2-54.2); Mean Corpuscular HGB Conc 33.9 GM/DL (32-36); Mean Corpuscular Volume 91.8 FL (87-102); Mean Platelet Volume 11.6 FL (9.6-12.0); Monocytes % 3.9 % (1.7-12.7); Neutrophils % 85.7 % (38.7-73.9); Platelet Count 59 T/CUMM (130-400); Red Blood Count 3.18 MC/CUMM (3.8-5.5); Red Cell Distribution Width 21.1 % (9.3-17.3); White Blood Count 7.4 T/CUMM (4-12)
[2020-12-27 06:35] LABS: Band Neutrophils 11 % (0-10); Lymphocytes 2 % (20-55); Segmented Neutrophils 85 % (50-85); Total Cells Counted 100
[2020-12-27 06:36] LABS: Hypochromasia 1+; Microcytosis 1+; Ovalocytes Few; Platelet Estimate Decreased
[2020-12-27 06:37] LABS: Calcium 9.7 MG/DL (8.5-10.1); Osmolality,Calculated 270.2 MOS/KG (273-304); Potassium 4.6 MMOL/L (3.5-5.1)
[2020-12-27] MEDS: INSULIN LISPRO 100 UNIT/ML SUBCUT SCH ×2 (09:12→11:31)
[2020-12-27] MEDS: methylPREDNISolone SOD SUC 40 MG/1 ML VIAL IV SCH (09:14)
[2020-12-27] MEDS: FILGRASTIM-SNDZ 300 MCG/0.5 ML SYRINGE SUBCUT SCH (09:14)
[2020-12-27] MEDS: METOPROLOL TARTRATE 25 MG TABLET PO SCH (09:14)
[2020-12-27] MEDS: PANTOPRAZOLE 40 MG VIAL IV SCH (09:14)
[2020-12-27 11:24] VITALS: BP 139/76
[2020-12-27] MEDS ORDERED: HEPARIN LOCK FLUSH 500 UNIT/5 ML SYRINGE IV ONE (12:57)
== END 2020-12-27 14:14 | disposition home or self-care (01) | DRG 660 ==
LOC: N.ED 15:48 → N.EDINP 20:02 → N.4E 20:33
PROVIDERS: ADMIT Internal Medicine; ATTEND Internal Medicine